=== PATIENT | female | born 1940 | race Caucasian/White ===

== ENCOUNTER 2018-07-05 01:30 | Inpatient (IN) | payer MEDICARE, BC ==
[~2018-07-05] VITALS: Ht 165.1 cm; Wt 75.3 kg
[2018-07-05] MEDS ORDERED: MAG HYDROX/AL HYDROX/SIMETH 30 ML LIQUID UDC PO PRN (03:00)
[2018-07-05] MEDS ORDERED: LORAZEPAM 1 MG TABLET PO PRN (03:00)
[2018-07-05] MEDS ORDERED: MAGNESIUM HYDROXIDE 30 ML LIQUID UDC PO PRN (03:00)
[2018-07-05] MEDS ORDERED: ACETAMINOPHEN 325 MG TABLET PO PRN (03:00)
[2018-07-05] MEDS ORDERED: TEMA15CA5 PO (04:58)
[2018-07-05] MEDS ORDERED: SENN-168 PO (04:58)
[2018-07-05] MEDS ORDERED: LEVO100T10 PO (04:58)
[2018-07-05] MEDS ORDERED: ARIP20TA4 PO (04:58)
[2018-07-05] MEDS ORDERED: POTA10TA15 PO (04:58)
[2018-07-05] MEDS ORDERED: MULT1TAB73 PO (04:58)
[2018-07-05] MEDS ORDERED: OMEP20TA5 PO (04:58)
[2018-07-05] MEDS ORDERED: CALC0.5C11 PO (04:58)
[2018-07-05] MEDS ORDERED: FERR325T28 PO (04:58)
[2018-07-05] MEDS ORDERED: DOCU100C36 PO (04:58)
[2018-07-05] MEDS ORDERED: CHOL10002 PO (04:58)
[2018-07-05] MEDS ORDERED: LITH150C PO (04:58)
[2018-07-05] MEDS ORDERED: MAGN400O6 PO (04:58)
[2018-07-05] MEDS ORDERED: METO25TA6 PO (04:58)
[2018-07-05] MEDS ORDERED: CALC-494 PO (04:58)
[2018-07-05] MEDS ORDERED: LISI10TA5 PO (04:58)
[2018-07-05] MEDS ORDERED: OLAN10TA3 PO (04:58)
[2018-07-05] MEDS ORDERED: SENN-22 PO (04:58)
[2018-07-05] MEDS ORDERED: SIMV10TA6 PO (04:58)
[2018-07-05] MEDS ORDERED: BUPR-96 PO (04:58)
[2018-07-05] MEDS ORDERED: ESOM40CA PO (04:58)
[2018-07-05] MEDS ORDERED: OLME20TA13 PO (04:58)
[2018-07-05 07:30] VITALS: BP 149/58
--- NOTE | 2018-07-05 07:55 | NUR ---
ADMISSION NOTE:78 YRS OLD WHITE FEMALE WAS TRANSFERRED FROM [facility] TO BE BE DIRECT ADMITTED HERE @ [facility].PT ARRIVED TO THE UNIT VIA [facility] [employer] BY AMBULANCE STAFFS.A/O X4.ON 5150-72 HR HOLD FOR DTS/GD.DEPRESSED, DISHEVELED AND UNKEMPT.PT HAS BEEN LOSING WT,ISOLATING,REFUSING TO SHOWER FOR WEEKS,SPITTING OUT MEDS AND LAST NIGHT,THE CAREGIVERS FOUND PT WITH A PLASTIC BAG OVER HER HEAD AND HER FACE WAS REDDISH BLUISH IN COLOR WHEN STAFF FOUND HER BUT DENIED DURING THE INTERVIEW.PT STATED,"IT'S NOT TRUE,I JUST WANTED TO PUT THE TRASH INSIDE THE PLASTIC BAG THAT'S ALL".RESISTIVE TO CARE @ FIRST -REFUSED TO TAKE A SHOWER WHE STAFF OFFERED BUT WHEN STAFF EXPLAINED TO HER HOW IT'S IMPORTANT THEN SHE AGREED TO TAKE AND STATED THAT SHE FEELS MUCH BETTER.DENIES PAIN/SI/HI/A&V H.WILL CONTINUE TO MONITOR VERY CLOSELY AND REQUESTED FOR 1:1
[2018-07-05 15:34] VITALS: BP 139/77
[2018-07-05 20:42] VITALS: BP 133/76
[2018-07-05] MEDS: MIRTAZAPINE 15 MG TABLET PO SCH (21:31)
[2018-07-05] MEDS: SIMVASTATIN 10 MG TABLET PO SCH (21:31)
[2018-07-06] MEDS: PANTOPRAZOLE SODIUM 40 MG TABLET.DR PO SCH (06:33)
[2018-07-06] MEDS: LEVOTHYROXINE SODIUM 100 MCG TABLET PO SCH (06:33)
[2018-07-06 07:02] LABS: BASOPHILS # (AUTO) 0.1 K/uL (0.0-8.0); BASOPHILS % (AUTO) 0.8 % (0.0-2.0); EOSINOPHILS # (AUTO) 0.1 K/uL (0.0-0.7); EOSINOPHILS % (AUTO) 1.6 % (0.0-7.0); HEMATOCRIT 41.9 % (31.2-41.9); HEMOGLOBIN 14.3 g/dL (10.9-14.3); LYMPHOCYTES # (AUTO) 1.4 K/uL (20.0-40.0); MEAN CORPUSCULAR HEMOGLOBIN 31.6 uug (24.7-32.8); MEAN CORPUSCULAR HGB CONC 34 g/dL (32.3-35.6); MEAN CORPUSCULAR VOLUME 92.5 fL (75.5-95.3); MONOCYTES # (AUTO) 0.8 K/uL (2.0-10.0); MONOCYTES % (AUTO) 8.8 % (0.0-11.0); NEUTROPHILS # (AUTO) 6.3 K/uL (1.8-8.9); NEUTROPHILS % (AUTO) 72.8 % (38.5-71.5); PLATELET COUNT (AUTO) 173 K/uL (179-408); RED BLOOD CELL COUNT(AUTO) 4.54 MIL/uL (3.63-4.92); WHITE BLOOD COUNT (AUTO) 8.7 K/uL (3.8-11.8)
[2018-07-06 07:30] VITALS: BP 122/69
[2018-07-06 07:49] LABS: CARBON DIOXIDE 27 mmol/L (21-32); CHLORIDE 106 mmol/L (98-107); CREATININE 0.9 mg/dL (0.6-1.3); GLUCOSE 101 mg/dL (74-106); MAGNESIUM 1.9 mg/dL (1.8-2.4); PHOSPHOROUS 3.2 mg/dL (2.5-4.9); POTASSIUM 4.1 mmol/L (3.5-5.1); UREA NITROGEN, BLOOD 17 mg/dL (7-18)
[2018-07-06 08:07] LABS: CHOLESTEROL 181 mg/dL (<200); HDL CHOLESTEROL 45 mg/dL (40-60); TRIGLYCERIDES 144 MG/DL (30-150)
[2018-07-06] MEDS: LOSARTAN POTASSIUM 50 MG TABLET PO SCH (08:55)
[2018-07-06] MEDS: FERROUS SULFATE 325 MG TABEC PO SCH (08:55)
[2018-07-06] MEDS: METOPROLOL TARTRATE 25 MG TABLET PO SCH (08:56)
[2018-07-06] MEDS: SENNOSIDES/DOCUSATE SODIUM TABLET PO SCH ×2 (08:56→16:56)
[2018-07-06] MEDS: CALCITRIOL 0.25 MCG CAPSULE PO SCH (08:57)
[2018-07-06] MEDS: LISINOPRIL 10 MG TABLET PO SCH (08:57)
[2018-07-06] MEDS: CALCIUM CARBONATE 500 MG TABLET PO SCH (08:58)
--- NOTE | 2018-07-06 14:45 | NUR ---
Initial Discharge Instructions: Patient is a current resident of [facility] [[address], [place] [address], ]. Pt reports she would like to return there upon discharge. Spoke with patient's daughter, Miya Shore ([phone]) who also would like patient to return to her [facility]. BERTO attempted to contact [facility] Coin Rolling Machine Operator, ([phone]) and left a message for a return call in order to confirm if patient can return. BERTO will continue to collaborate with pt, family, and MD regarding most appropriate discharge plans for this patient. SW will form a safe and proper discharge.
--- NOTE | 2018-07-06 15:07 | NUR ---
Firearms Report: BERTO completed and submitted [employer] Firearms Report for 5150 DTS/GD certifications.
[2018-07-06 17:02] VITALS: BP 93/50
[2018-07-06 18:21] LABS: *BILIRUBIN,URIN NEGATIVE (NEGATIVE); *BLOOD, URINE 2+ (NEGATIVE); *COLOR,URINE YELLOW (YELLOW); *KETONES,URINE NEGATIVE (NEGATIVE); *UROBILINOGEN,URINE 0.2 E.U./dl (NORMAL); LEUKOCYTE ESTERASE ,URINE TRACE (NEGATIVE); NITRITE, URINE NEGATIVE (NEGATIVE); UGLUCOSE NEGATIVE (NEGATIVE)
[2018-07-06 18:30] LABS: *CLARITY,URINE SLIGHTLY HAZY (CLEAR)
[2018-07-06 18:33] LABS: RBC,URINE 20-50 /HPF (0-3)
[2018-07-06 18:34] LABS: MUCUS,URINE MODERATE /LPF (0-FEW); SQUAMOUS EPITHELIAL CELL,UR FEW /HPF (NONE SEEN)
[2018-07-06] MEDS: MIRTAZAPINE 15 MG TABLET PO SCH (21:48)
[2018-07-06] MEDS: SIMVASTATIN 10 MG TABLET PO SCH (21:48)
[2018-07-06 22:45] VITALS: BP 99/44
[2018-07-07] MEDS: PANTOPRAZOLE SODIUM 40 MG TABLET.DR PO SCH (06:33)
[2018-07-07] MEDS: LEVOTHYROXINE SODIUM 100 MCG TABLET PO SCH (06:33)
[2018-07-07 07:30] VITALS: BP 104/49
[2018-07-07] MEDS: METOPROLOL TARTRATE 25 MG TABLET PO SCH (08:36)
[2018-07-07] MEDS: CALCIUM CARBONATE 500 MG TABLET PO SCH (08:36)
[2018-07-07] MEDS: FERROUS SULFATE 325 MG TABEC PO SCH (08:37)
[2018-07-07] MEDS: LISINOPRIL 10 MG TABLET PO SCH (08:37)
[2018-07-07] MEDS: SENNOSIDES/DOCUSATE SODIUM TABLET PO SCH ×2 (08:37→16:29)
[2018-07-07] MEDS: LOSARTAN POTASSIUM 50 MG TABLET PO SCH (08:38)
[2018-07-07] MEDS: CALCITRIOL 0.25 MCG CAPSULE PO SCH (08:38)
[2018-07-07 16:00] VITALS: BP 112/55
--- NOTE | 2018-07-07 16:04 | NUR ---
GROUP NOTE: Group topic was focused on how to talk with your doctor and advocate for yourself Subjective: "No, I am resting." Objective: Patient did not express interest in attending group and chose to stay in her room. Patient appears isolative and withdrawn. Assessment: Patient presented with euthymic mood and flat affect. Patient needs encouragement to come out of room and engage with peers. Plan: child abuse worker will continue to encourage group attendance as scheduled. child abuse worker will continue to provide support to the patient to encourage participation.
[2018-07-07] MEDS: CEphaleXIN 500 MG CAPSULE PO SCH (16:29)
--- NOTE | 2018-07-07 18:12 | NUR ---
patient has remained in bed through out the day. patient has 1:1 sitter at bedside. patient has been compliant with medication administration and does not show any non-compliant behaivor. patient is able to verbalize needs. Upon assessments, patient denies any SI/HI. Will continue to monitor and endorse plan of care to fast food shift lead,.
[2018-07-07] MEDS: DIVALPROEX 250 MG TABLET.DR PO SCH (21:26)
[2018-07-07] MEDS: MIRTAZAPINE 15 MG TABLET PO SCH (21:26)
[2018-07-07] MEDS: SIMVASTATIN 10 MG TABLET PO SCH (21:27)
[2018-07-07 21:46] VITALS: BP 145/57
--- NOTE | 2018-07-08 05:44 | NUR ---
Patient is alert and oriented x2 and denies any pain or discomfort at this time. Able to make needs known. Patient remained with 1-1 sitter. Patient is compliant with all medications and medical treatments. Medication given as ordered. Safety measures maintained. Will continue to monitor and endorse plan of care to oncoming nurse.
[2018-07-08] MEDS: LEVOTHYROXINE SODIUM 100 MCG TABLET PO SCH (06:42)
[2018-07-08] MEDS: PANTOPRAZOLE SODIUM 40 MG TABLET.DR PO SCH (06:42)
[2018-07-08 07:30] VITALS: BP 139/69
[2018-07-08] MEDS: CALCIUM CARBONATE 500 MG TABLET PO SCH (09:09)
[2018-07-08] MEDS: CEphaleXIN 500 MG CAPSULE PO SCH ×2 (09:09→18:10)
[2018-07-08] MEDS: DIVALPROEX 250 MG TABLET.DR PO SCH ×2 (09:09→21:41)
[2018-07-08] MEDS: FERROUS SULFATE 325 MG TABEC PO SCH (09:09)
[2018-07-08] MEDS: LISINOPRIL 10 MG TABLET PO SCH (09:10)
[2018-07-08] MEDS: LOSARTAN POTASSIUM 50 MG TABLET PO SCH (09:10)
[2018-07-08] MEDS: METOPROLOL TARTRATE 25 MG TABLET PO SCH (09:11)
[2018-07-08] MEDS: SENNOSIDES/DOCUSATE SODIUM TABLET PO SCH ×2 (09:11→18:09)
[2018-07-08] MEDS: CALCITRIOL 0.25 MCG CAPSULE PO SCH (09:12)
[2018-07-08 16:00] VITALS: BP 133/56
[2018-07-08 20:00] VITALS: BP 113/55
[2018-07-08] MEDS: MIRTAZAPINE 15 MG TABLET PO SCH (21:41)
[2018-07-08] MEDS: SIMVASTATIN 10 MG TABLET PO SCH (21:41)
[2018-07-08] MEDS: TEMAZEPAM 7.5 MG CAPSULE PO PRN (22:45)
[2018-07-09] MEDS: PANTOPRAZOLE SODIUM 40 MG TABLET.DR PO SCH (06:47)
[2018-07-09] MEDS: LEVOTHYROXINE SODIUM 100 MCG TABLET PO SCH (06:48)
[2018-07-09 07:30] VITALS: BP 122/54
[2018-07-09] MEDS: DIVALPROEX 250 MG TABLET.DR PO SCH ×2 (08:22→20:18)
[2018-07-09] MEDS: LISINOPRIL 10 MG TABLET PO SCH (08:22)
[2018-07-09] MEDS: CALCIUM CARBONATE 500 MG TABLET PO SCH (08:22)
[2018-07-09] MEDS: CEphaleXIN 500 MG CAPSULE PO SCH ×2 (08:22→17:25)
[2018-07-09] MEDS: FERROUS SULFATE 325 MG TABEC PO SCH (08:22)
[2018-07-09] MEDS: METOPROLOL TARTRATE 25 MG TABLET PO SCH (08:23)
[2018-07-09] MEDS: CALCITRIOL 0.25 MCG CAPSULE PO SCH (08:23)
[2018-07-09] MEDS: SENNOSIDES/DOCUSATE SODIUM TABLET PO SCH ×2 (08:23→17:25)
[2018-07-09] MEDS: LOSARTAN POTASSIUM 50 MG TABLET PO SCH (09:00)
[2018-07-09 16:17] VITALS: BP 125/75
[2018-07-09 20:00] VITALS: BP 117/64
[2018-07-09] MEDS: MIRTAZAPINE 15 MG TABLET PO SCH (20:17)
[2018-07-09] MEDS: SIMVASTATIN 10 MG TABLET PO SCH (20:18)
[2018-07-09] MEDS: TEMAZEPAM 7.5 MG CAPSULE PO PRN (21:51)
[2018-07-10] MEDS: PANTOPRAZOLE SODIUM 40 MG TABLET.DR PO SCH (06:25)
[2018-07-10] MEDS: LEVOTHYROXINE SODIUM 100 MCG TABLET PO SCH (06:30)
[2018-07-10 07:30] VITALS: BP 132/52
[2018-07-10] MEDS: FERROUS SULFATE 325 MG TABEC PO SCH (09:43)
[2018-07-10] MEDS: CALCIUM CARBONATE 500 MG TABLET PO SCH (09:43)
[2018-07-10] MEDS: CEphaleXIN 500 MG CAPSULE PO SCH ×2 (09:43→18:48)
[2018-07-10] MEDS: METOPROLOL TARTRATE 25 MG TABLET PO SCH (09:43)
[2018-07-10] MEDS: LOSARTAN POTASSIUM 50 MG TABLET PO SCH (09:44)
[2018-07-10] MEDS: LISINOPRIL 10 MG TABLET PO SCH (09:44)
[2018-07-10] MEDS: SENNOSIDES/DOCUSATE SODIUM TABLET PO SCH ×2 (09:50→18:48)
[2018-07-10] MEDS: DIVALPROEX 250 MG TABLET.DR PO SCH ×2 (09:50→20:01)
[2018-07-10] MEDS: CALCITRIOL 0.25 MCG CAPSULE PO SCH (09:53)
[2018-07-10 16:06] VITALS: BP 113/75
[2018-07-10 20:00] VITALS: BP 116/51
[2018-07-10] MEDS: MIRTAZAPINE 15 MG TABLET PO SCH (20:01)
[2018-07-10] MEDS: SIMVASTATIN 10 MG TABLET PO SCH (20:01)
[2018-07-10] MEDS: TEMAZEPAM 7.5 MG CAPSULE PO PRN (21:02)
[2018-07-11] MEDS: PANTOPRAZOLE SODIUM 40 MG TABLET.DR PO SCH (06:07)
[2018-07-11] MEDS: LEVOTHYROXINE SODIUM 100 MCG TABLET PO SCH (06:30)
[2018-07-11 07:30] VITALS: BP 136/58
[2018-07-11] MEDS: LISINOPRIL 10 MG TABLET PO SCH (08:47)
[2018-07-11] MEDS: FERROUS SULFATE 325 MG TABEC PO SCH (08:47)
[2018-07-11] MEDS: CEphaleXIN 500 MG CAPSULE PO SCH ×2 (08:47→17:19)
[2018-07-11] MEDS: CALCIUM CARBONATE 500 MG TABLET PO SCH (08:47)
[2018-07-11] MEDS: DIVALPROEX 250 MG TABLET.DR PO SCH ×2 (08:47→21:00)
[2018-07-11] MEDS: CALCITRIOL 0.25 MCG CAPSULE PO SCH (08:48)
[2018-07-11] MEDS: LOSARTAN POTASSIUM 50 MG TABLET PO SCH (08:48)
[2018-07-11] MEDS: SENNOSIDES/DOCUSATE SODIUM TABLET PO SCH ×2 (08:48→17:18)
[2018-07-11] MEDS: METOPROLOL TARTRATE 25 MG TABLET PO SCH (08:56)
[2018-07-11 16:08] VITALS: BP 124/70
--- NOTE | 2018-07-11 18:17 | NUR ---
Patient has been in room through out the entire day with 1:1 at bedside.Patient denies SI and HI at this time. Patient refuses to cooperate with group activities and getting out of the bed. Patient prefers to stay in bed. patient is compliant with all mediation administration and medical treatment. patient is able to verbalize needs and needs have been met. Will continue to monitor and endorse plan of care to production miner nurse.
[2018-07-11 20:23] VITALS: BP 137/66
[2018-07-11] MEDS: SIMVASTATIN 10 MG TABLET PO SCH (21:00)
[2018-07-11] MEDS: MIRTAZAPINE 15 MG TABLET PO SCH (21:00)
[2018-07-12] MEDS: PANTOPRAZOLE SODIUM 40 MG TABLET.DR PO SCH (07:18)
[2018-07-12 07:30] VITALS: BP 134/62
[2018-07-12] MEDS: LEVOTHYROXINE SODIUM 100 MCG TABLET PO SCH (07:45)
--- NOTE | 2018-07-12 07:46 | NUR ---
pt remain calm and quiet all through the night. she did not verbalize any suicidal ideation . she presented her self with a flat affect. pt needed prompting before compliancy with care. a sitter remain at the bedside. she will remain in view of staff at all times .
[2018-07-12] MEDS: FERROUS SULFATE 325 MG TABEC PO SCH (09:46)
[2018-07-12] MEDS: CALCITRIOL 0.25 MCG CAPSULE PO SCH (09:46)
[2018-07-12] MEDS: CEphaleXIN 500 MG CAPSULE PO SCH ×2 (09:46→16:10)
[2018-07-12] MEDS: SENNOSIDES/DOCUSATE SODIUM TABLET PO SCH ×2 (09:47→16:10)
[2018-07-12] MEDS: DIVALPROEX 250 MG TABLET.DR PO SCH ×2 (09:47→20:26)
[2018-07-12] MEDS: LOSARTAN POTASSIUM 50 MG TABLET PO SCH (09:47)
[2018-07-12] MEDS: CALCIUM CARBONATE 500 MG TABLET PO SCH (09:47)
[2018-07-12] MEDS: METOPROLOL TARTRATE 25 MG TABLET PO SCH (09:48)
[2018-07-12] MEDS: LISINOPRIL 10 MG TABLET PO SCH (09:48)
[2018-07-12 16:40] VITALS: BP 122/60
--- NOTE | 2018-07-12 19:09 | NUR ---
Pt AAOx3, assessed, NAD, denies SI/HI/AH/VH, agrees to CFS, and able to make his needs known. 1:1 sitter remains at the bedside. Pt is compliant with all routine medication administration and cooperative with nursing care when prompted. Pt appears calm and withdrawn, guarded with minimal disclosure, resting in bed with her crossword puzzles most of the shift. All safety and comfort needs attended to promptly throughout the shift. Bed in locked and lowest position with side rails up x2. Will continue to monitor and endorse to oncoming operative supervisor.
[2018-07-12] MEDS: MIRTAZAPINE 15 MG TABLET PO SCH (20:26)
[2018-07-12] MEDS: SIMVASTATIN 10 MG TABLET PO SCH (20:26)
[2018-07-12 21:35] VITALS: BP 133/62
[2018-07-12] MEDS: TEMAZEPAM 7.5 MG CAPSULE PO PRN (23:34)
[2018-07-13] MEDS: PANTOPRAZOLE SODIUM 40 MG TABLET.DR PO SCH (06:26)
[2018-07-13] MEDS: LEVOTHYROXINE SODIUM 100 MCG TABLET PO SCH (06:30)
[2018-07-13 07:30] VITALS: BP 125/52
[2018-07-13] MEDS: LISINOPRIL 10 MG TABLET PO SCH (08:55)
[2018-07-13] MEDS: CALCIUM CARBONATE 500 MG TABLET PO SCH (08:55)
[2018-07-13] MEDS: LOSARTAN POTASSIUM 50 MG TABLET PO SCH (08:56)
[2018-07-13] MEDS: CEphaleXIN 500 MG CAPSULE PO SCH ×2 (08:56→17:29)
[2018-07-13] MEDS: METOPROLOL TARTRATE 25 MG TABLET PO SCH (08:56)
[2018-07-13] MEDS: FERROUS SULFATE 325 MG TABEC PO SCH (08:56)
[2018-07-13] MEDS: DIVALPROEX 250 MG TABLET.DR PO SCH ×2 (08:56→20:20)
[2018-07-13] MEDS: SENNOSIDES/DOCUSATE SODIUM TABLET PO SCH ×2 (08:56→17:29)
[2018-07-13] MEDS: CALCITRIOL 0.25 MCG CAPSULE PO SCH (08:57)
[2018-07-13 15:59] VITALS: BP 125/63
[2018-07-13 20:20] VITALS: BP 126/51
[2018-07-13] MEDS: MIRTAZAPINE 15 MG TABLET PO SCH ×2 (20:21→21:00)
[2018-07-13] MEDS: SIMVASTATIN 10 MG TABLET PO SCH (20:21)
[2018-07-13] MEDS: TEMAZEPAM 7.5 MG CAPSULE PO PRN (21:02)
--- NOTE | 2018-07-14 02:32 | NUR ---
Order for Remeron 22.5mg held d/t Remeron 15mg already having been administered from previous active order, given at 2020. Remeron 22.5mg to be started on 07/11/18. Dr Allan reyes.
[2018-07-14] MEDS: PANTOPRAZOLE SODIUM 40 MG TABLET.DR PO SCH (06:09)
[2018-07-14] MEDS: LEVOTHYROXINE SODIUM 100 MCG TABLET PO SCH (06:36)
[2018-07-14 07:30] VITALS: BP 136/66
[2018-07-14] MEDS: CEphaleXIN 500 MG CAPSULE PO SCH (08:19)
[2018-07-14] MEDS: CALCIUM CARBONATE 500 MG TABLET PO SCH (08:19)
[2018-07-14] MEDS: DIVALPROEX 250 MG TABLET.DR PO SCH ×2 (08:19→21:12)
[2018-07-14] MEDS: LISINOPRIL 10 MG TABLET PO SCH (08:19)
[2018-07-14] MEDS: FERROUS SULFATE 325 MG TABEC PO SCH (08:19)
[2018-07-14] MEDS: LOSARTAN POTASSIUM 50 MG TABLET PO SCH (08:20)
[2018-07-14] MEDS: SENNOSIDES/DOCUSATE SODIUM TABLET PO SCH ×2 (08:22→17:18)
[2018-07-14] MEDS: CALCITRIOL 0.25 MCG CAPSULE PO SCH (08:22)
[2018-07-14] MEDS: METOPROLOL TARTRATE 25 MG TABLET PO SCH (09:00)
--- NOTE | 2018-07-14 13:38 | NUR ---
X Ray Service Engineer Discharge Planning: SW called and spoke to pt's daughter, Miya ([phone]) to discuss discharge planning. This telegraphic typewriter operator chief informed daughter of potential discharge for 07/16/18. Explored option of Home Health for the patient, and daughter was agreeable. Daughter expressed need for outpatient Psychiatrist for the patient. SW will provide referrals. Per daughter, she will brass pickler the patient when she is ready to DC. SW will continue to follow-up.
--- NOTE | 2018-07-14 15:58 | NUR ---
GROUP NOTE: Patients were asked to answer the question of "When is a time in your life when you felt very proud of yourself?" Subjective: "I don't want to go today." Objective: Patient did not attend group. Assessment: Patient presented in bed at the time of group. She appeared to be attempting to sleep. Plan: SW will encourage group participation as scheduled.
[2018-07-14 16:00] VITALS: BP 136/61
--- NOTE | 2018-07-14 18:11 | NUR ---
Patient continues to isolate herself in her room. Patient has 1:1 sitter at bedside. Patient is calm and cooperative. Patient is compliant with all medication administration and medical treatment. Patient denies any pain or discomfort at this time. Patient denies SI/HI. Will continue to monitor and endorse plan of care to fast food shift supervisor nurse.
--- NOTE | 2018-07-14 20:00 | NUR ---
RECEIVED PATIENT IN HER ROOM IN BED, SHE IS NOTED AWAKE A/O X 3 SHE IS NOTED DOING CROSS WORD PUZZLES. NOTED CALM AND COOPERATIVE UPON APPROACHED, BRIGHT AFFECT. CONGRUENT MOOD. SHE DENIES SI, DENIES AH/VH/HI. DOWNPLAY HER SUICIDAL ATTEMPT. ABLE TO CFS. SHE CONTINUES ON 1:1 SUPERVISION FOR SUICIDAL PRECAUTION D/R RECENT ATTEMPT. PT WAS REASSURED FOR HER SAFETY. ENCOURAGE TO VERBALIZED FEELINGS. V/S STABLE AT THIS TIME. WILL CONTINUE TO MONITOR.
[2018-07-14] MEDS: SIMVASTATIN 10 MG TABLET PO SCH (21:12)
[2018-07-14] MEDS: MIRTAZAPINE 15 MG TABLET PO SCH (21:13)
[2018-07-14 21:53] VITALS: BP 142/82
[2018-07-15] MEDS: PANTOPRAZOLE SODIUM 40 MG TABLET.DR PO SCH (06:37)
[2018-07-15] MEDS: LEVOTHYROXINE SODIUM 100 MCG TABLET PO SCH (06:37)
[2018-07-15 06:59] LABS: BASOPHILS % (AUTO) 0.8 % (0.0-2.0); EOSINOPHILS # (AUTO) 0.1 K/uL (0.0-0.7); EOSINOPHILS % (AUTO) 1.9 % (0.0-7.0); HEMATOCRIT 40.5 % (31.2-41.9); HEMOGLOBIN 13.7 g/dL (10.9-14.3); LYMPHOCYTES % (AUTO) 32.2 % (20.5-51.5); MEAN CORPUSCULAR HEMOGLOBIN 31.1 uug (24.7-32.8); MEAN CORPUSCULAR HGB CONC 34 g/dL (32.3-35.6); MEAN CORPUSCULAR VOLUME 92.2 fL (75.5-95.3); MONOCYTES # (AUTO) 0.6 K/uL (2.0-10.0); MONOCYTES % (AUTO) 10.1 % (0.0-11.0); NEUTROPHILS # (AUTO) 3.4 K/uL (1.8-8.9); PLATELET COUNT (AUTO) 181 K/uL (179-408); RED BLOOD CELL COUNT(AUTO) 4.39 MIL/uL (3.63-4.92); WHITE BLOOD COUNT (AUTO) 6.2 K/uL (3.8-11.8)
[2018-07-15 07:10] LABS: CARBON DIOXIDE 31 mmol/L (21-32); CHLORIDE 108 mmol/L (98-107); CREATININE 0.7 mg/dL (0.6-1.3); GLUCOSE 86 mg/dL (74-106); POTASSIUM 3.3 mmol/L (3.5-5.1); UREA NITROGEN, BLOOD 11 mg/dL (7-18)
[2018-07-15] MEDS: DIVALPROEX 250 MG TABLET.DR PO SCH ×2 (08:06→20:30)
[2018-07-15] MEDS: METOPROLOL TARTRATE 25 MG TABLET PO SCH (08:06)
[2018-07-15] MEDS: LISINOPRIL 10 MG TABLET PO SCH (08:06)
[2018-07-15] MEDS: CALCIUM CARBONATE 500 MG TABLET PO SCH (08:06)
[2018-07-15] MEDS: FERROUS SULFATE 325 MG TABEC PO SCH (08:06)
[2018-07-15] MEDS: LOSARTAN POTASSIUM 50 MG TABLET PO SCH (08:06)
[2018-07-15] MEDS: SENNOSIDES/DOCUSATE SODIUM TABLET PO SCH ×2 (08:07→17:30)
[2018-07-15] MEDS: CALCITRIOL 0.25 MCG CAPSULE PO SCH (08:07)
[2018-07-15 08:18] VITALS: BP 122/56
[2018-07-15] MEDS ORDERED: POTASSIUM CHLORIDE 20 MEQ TAB.PRT.SR PO ONE (10:15)
--- NOTE | 2018-07-15 15:48 | NUR ---
Gps/Bucket Wash Operator- Continue to be compliant with her routine medications needed encouragement and prompting to initiate simple tasks to assist self. Safety continue to emphasized. Encouraged verbalizations of needs. Refusing to get out of her room , preferred doing her puzzles .
[2018-07-15 20:00] VITALS: BP 133/67
[2018-07-15] MEDS: SIMVASTATIN 10 MG TABLET PO SCH (20:31)
[2018-07-15] MEDS: MIRTAZAPINE 15 MG TABLET PO SCH (20:31)
[2018-07-15] MEDS: TEMAZEPAM 7.5 MG CAPSULE PO PRN (22:31)
--- NOTE | 2018-07-16 05:18 | NUR ---
Pt slept comfortably at night. No acute distress noted. No c/o pain or discomfort. 1:1 sitter at bedside. All due meds given as ordered. Pt cooperative and compliant with care. Denies S/I. Plan to D/C today. All needs attended to promptly. Safety measures maintained. Continue to monitor.
--- NOTE | 2018-07-16 06:00 | NUR ---
slept well approx. 6 hrs.
[2018-07-16] MEDS: PANTOPRAZOLE SODIUM 40 MG TABLET.DR PO SCH (06:29)
[2018-07-16] MEDS: LEVOTHYROXINE SODIUM 100 MCG TABLET PO SCH (06:31)
[2018-07-16 07:30] VITALS: BP 109/52
[2018-07-16 09:00] VITALS: BP 109/52
[2018-07-16] MEDS: LOSARTAN POTASSIUM 50 MG TABLET PO SCH (09:00)
[2018-07-16] MEDS: LISINOPRIL 10 MG TABLET PO SCH (09:00)
[2018-07-16] MEDS: METOPROLOL TARTRATE 25 MG TABLET PO SCH (09:00)
[2018-07-16] MEDS: CALCIUM CARBONATE 500 MG TABLET PO SCH (09:33)
[2018-07-16] MEDS: FERROUS SULFATE 325 MG TABEC PO SCH (09:33)
[2018-07-16] MEDS: DIVALPROEX 250 MG TABLET.DR PO SCH (09:33)
[2018-07-16] MEDS: CALCITRIOL 0.25 MCG CAPSULE PO SCH (09:34)
[2018-07-16] MEDS: SENNOSIDES/DOCUSATE SODIUM TABLET PO SCH (09:34)
--- NOTE | 2018-07-16 09:38 | NUR ---
DC Note: Patient will be discharged back to her [facility] [[address], [place] [address]; [phone]] via private transportation at 11am. Spoke with patients daughter, Miya ([phone]) who is aware and agreeable with discharge plans. Spoke with Mague, Crew Team Member at the facility ([phone]) who is aware and agreeable with discharge plans. Samantha , Fredo Moore, will be picking up the patient today and providing transportation to the [facility]. Patient is aware of discharge plans, denies SI/HI, and appears to have a flat affect. Patient will continue to follow-up with her Primary Care Physician, Dr. Gregg Shaikh [Address: [address] [facility], [place] [address]; ]. Patient was [facility] with a [facility] in her area. Patient was encouraged to present to [facility] [[address], [place] [address]; ] within 7 days of discharge if she needs psychiatric care sooner. A Home Health Order for PT/OT, medication management, and Psych Nursing was faxed to [facility] (ph. [phone]; f. [phone]). Spoke with Merline in admissions who will alert this mortgage or loan underwriter if patient has been accepted. Patient was provided with outpatient mental health referrals to [facility] , [facility] , and the National Suicide Prevention Lifeline .
--- NOTE | 2018-07-16 12:00 | NUR ---
1045 Called [facility] spoke w/ Yuniel , adm. and report given regarding medications to continue at home and prescription, both psych and medical faxed to pharmacy. 1110 Discharge instructions also give to patient regarding medications to continue upon discharge- patient verbalized understanding. All valuable and belonging returned and signed by patient. 1130 Patient discharged to [facility] via private car, patient alert and ox2, denies SI/HI. No delusion. No a/v hallucination noted.
== END 2018-07-16 11:30 | disposition home health service (06) | DRG 885 ==
LOC: GPS 01:30 → UNDOADMIN 01:30 → GPS 02:25
PROVIDERS: ADMIT Psychiatry & Neurology Psychiatry; ATTEND Nurse Practitioner Acute Care
DX: F31.30 Bipolar disorder, current episode depressed, mild or moderate severity, unspecified (principal); B95.1 Streptococcus, group B, as the cause of diseases classified elsewhere; N39.0 Urinary tract infection, site not specified; E87.0 Hyperosmolality and hypernatremia; R45.851 Suicidal ideations; Z82.49 Family history of ischemic heart disease and other diseases of the circulatory system; F41.9 Anxiety disorder, unspecified; I10 Essential (primary) hypertension
CPT/HCPCS: 36415; 80164; 83735; 84100; 85025; 87077; 87086; 97110; 97112; 97116; 97530; J3490